=== PATIENT | female | born 1990 | race Caucasian/White ===

== ENCOUNTER 2016-11-27 23:50 | Inpatient (IN) | payer SELFPAY ==
--- NOTE | ~2016-11-27 | CN ---
Consultation Report [facility] [address] [place]. [address] NAME: JAIRO MORENO : 89 STATUS : ADM IN PAT#: [id number] AGE: 26 ADM/REG DATE : 11/28/16 MR#: [id number] REPORT SERV DATE: 11/28/16 DICTATED BY: ROJAS JAEGER DATE: 11/28/16 REPORT STATUS : Draft TRANSCRIBED BY: MODL DATE: 11/28/16 INFECTIOUS DISEASE CONSULT DATE OF CONSULTATION: REASON FOR CONSULT: Left face cellulitis. HISTORY OF PRESENT ILLNESS: 26-year-old white female with history of hypertension, who was admitted for left face cellulitis. A few days ago, she noticed a lesion or pimple on the medial aspect of the left nostril antrum followed by swelling of the left upper lip and then low-grade fever of 100.5 and swelling extending to the left side of the face. 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 Yesterday, he gave her a shot of Rocephin and prescription for Bactrim and Keflex. However, with the low-grade fever and the extension of cellulitis, she came to the emergency room overnight and was admitted. She was started on vancomycin and clindamycin. She reports no shortness of breath, no diarrhea, no abdominal pain. She has no history of pimples, boils or Staph infections, but her or significant other had some form of lesion on his neck recently. She has not been febrile here in the hospital. With the highest temperature being 99.8, a CT of the "face" showed soft tissue swelling over the left cheek and phlegmon-type changes lateral to the soft tissue of the nose and below the nose. Incidental finding was a "hypoplastic right maxillary sinus." There may be a small soft tissue abscess. Lab work on admission showed a creatinine of 1.0. Liver enzymes within normal limits. Lactic acid 1.9. WBC 17, hemoglobin 15, platelets 350. Blood cultures were collected. PAST MEDICAL HISTORY: Hypertension. SOCIAL HISTORY: Works for a doctor's office. Does not smoke or drink. FAMILY HISTORY: As I mentioned about possible skin infection. MEDICATIONS ON ADMISSION: The two antibiotics plus losartan. Also she was given Conroy as needed. ALLERGIES: NONE. PHYSICAL EXAMINATION: GENERAL: She is alert, awake, obese. HEENT: She has swelling of the medial aspect of the left side of the face and induration and swelling of the left upper lip. In the medial aspect of the left nostril antrum, there is a swollen area which seems to have a little drainage. The patient reported drainage from it at home. HEART: Regular rhythm. No murmurs. LUNGS: Clear to auscultation. ABDOMEN: Obese and soft. Consultation Report [address] [place]. [facility] [place]. [address] NAME: JAIRO MORENO : 89 STATUS : ADM IN PAT#: [id number] AGE: 26 ADM/REG DATE : 11/28/16 MR#: [id number] REPORT SERV DATE: 11/28/16 DICTATED BY: ROJAS JAEGER DATE: 11/28/16 REPORT STATUS : Draft TRANSCRIBED BY: LENORA DATE: 11/28/16 ASSESSMENT AND PLAN: Left facial cellulitis secondary to left nostril abscess. Typically, these are caused by Staphylococcus aureus. She is forming a small abscess in the left nostril. Need to facilitate drainage. I suggested intermittent warm compresses. Consider ENT for lancing it. Antibiotic albright, I do not think she needs both clindamycin and vancomycin. Continue vancomycin for now, but I think tomorrow we could switch to linezolid p.o. I discussed with the nurse and explained how to obtain a culture from the drainage from the left nostril abscess. I discussed with the patient. She had the opportunity to ask questions. JARRED/LENORA Rojas Jaeger M.D. / [id number] CC: Torie Miranda M.D.
--- NOTE | ~2016-11-27 | DS ---
Discharge Summary [facility] [address] [place]. [address] NAME: JAIRO MORENO : 89 STATUS : ADM IN [facility]#: [id number] AGE: 26 ADM/REG DATE : 11/28/16 MR#: [id number] REPORT SERV DATE: 12/01/16 DICTATED BY: NELA BARON DATE: 12/01/16 REPORT STATUS : Draft TRANSCRIBED BY: MODL DATE: 12/01/16 ADMISSION DATE: 11/28/2016 DISCHARGE DATE: 12/01/2016 DIAGNOSES ON ADMISSION: 1. Left facial cellulitis with a small left-sided abscess inside of the nose. 2. Leukocytosis with sepsis on admission with tachycardia. 3. Hypertension. DIAGNOSES ON DISCHARGE: 1. Left facial cellulitis resolved with residual left-sided lip swelling, improved. 2. Small abscess inside of the nose currently self-draining. The patient doing very well. 3. Sepsis syndrome present on admission, resolved next day. Afebrile with normal white count, doing very well. 4. Hypertension, controlled. 5. Obesity. 6. Leukocytosis, resolved. CONSULTANTS ON THE CASE: Dr. Rojas Cool of Infectious Disease and Dr. Tj West of Ear, Nose, and Throat. HISTORY OF PRESENT ILLNESS: Briefly, this is a very pleasant 26-year-old female, who was admitted by my colleague, Dr. Mann for left-sided facial swelling as well as cellulitis and lip swelling as well as a small questionable abscess inside of the nose. For the details of history of present illness, see details dictated by Dr. Mann on 11/28/2016. HOSPITAL COURSE: Briefly, patient was initially started on broad-spectrum antibiotics and IV fluids. Next day, Dr. Cool, Infectious Disease saw patient and he recommended to continue vancomycin and to switch subsequently to Zyvox as well as Ear, Nose, and Throat, Dr. West was consulted for possible abscess because the CT scan which was done on admission on her face showed soft tissue swelling over the nose and cheek region, which may be related to inflammation, and there is a suggestion of a small lucent area in the middle portion, which measures 1.4 to 0.5 cm which could be a small soft tissue abscess. Dr. West evaluated this patient, and he thinks that she had nasal folliculitis and facial lip cellulitis. There was no evidence of abscess on physical examination because it seems to have spontaneously drained, so the patient did not need any surgery. She just had an infected hair follicle, which turned into cellulitis, but the patient improved significantly on antibiotics and she is doing very well. For the last two days, she is afebrile. The infection spontaneously drained and the swelling has resolved. There is minimal swelling on the upper lip, which is improving day by day. Dr. Rojas Cool evaluated the patient again yesterday and he recommended to switch her to cefadroxil according to sensitivity, and she needs to continue seven days of cefadroxil at a dose of 1000 mg twice a day. Prescription is written by me as well as she needs to continue her home blood pressure medicine, losartan. The patient had mild yeast for which she was given clotrimazole cream and she can use it as [id number] as needed, but now her yeast has resolved. Discharge Summary [address] [address] NAME: JAIRO MORENO : 89 STATUS : ADM IN [facility]#: [id number] AGE: 26 ADM/REG DATE : 11/28/16 MR#: [id number] REPORT SERV DATE: 12/01/16 DICTATED BY: NELA BARON DATE: 12/01/16 REPORT STATUS : Draft TRANSCRIBED BY: LENORA DATE: 12/01/16 The patient was discharged in stable condition. She was recommended to follow up with Ear, Nose, and Throat, Dr. West as needed. If she will have more problems, she can also follow up with the emergency department, but she looks very well, afebrile, and the white count being in the normal range. I spent 45 minutes on discharge. /LENORA Nela Baron M.D. / [id number] CC: Nela Baron M.D.
--- NOTE | ~2016-11-27 | CN ---
Consultation Report [facility] [address] [place]. [address] NAME: JAIRO ALVARADO : 89 STATUS : ADM IN [facility]#: [id number] AGE: 26 ADM/REG DATE : 11/28/16 MR#: [id number] REPORT SERV DATE: 11/29/16 DICTATED BY: BEN MOROCHO DATE: 11/29/16 REPORT STATUS : Draft TRANSCRIBED BY: MODL DATE: 11/29/16 CONSULTATION DATE OF CONSULTATION: 11/29/2016 REASON FOR CONSULTATION: Facial cellulitis and possible abscess. 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 A few days ago, she noticed a sore area in the left nasal vestibule and then overnight she developed a fever to 100.5 and a rapid swelling in the left side of her face and upper lip. Her provider, Dr. Cardoza, gave her shot of Rocephin, Bactrim, and Keflex, but her symptoms persisted and she was admitted to the hospital on 11/27/2016 for further IV antibiotics. 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 No alcohol or tobacco abuse. PAST MEDICAL HISTORY: Hypertension. PHYSICAL EXAMINATION: GENERAL: The patient is awake, alert, appropriate. HEENT: Both ears are clear. Nose, in the floor of the left nasal vestibule, there is a purulent drainage from a hair follicle in this region. Examination to the face and neck, she has diffuse swelling of the upper lip, but no fluctuance. IMPRESSION: Nasal folliculitis with facial/lip cellulitis. No evidence of significant abscess on physical exam. It seems to have spontaneously drained. RECOMMENDATIONS: Continue current IV antibiotics and call me if it does not improve. RASHIDA/LENORA Ben Morocho M.D. / [id number] CC: Torie Miranda M.D. NO PCP
--- NOTE | ~2016-11-27 | HP ---
History And Physical [place] [id number] [facility] [place]. [address] NAME: JAIRO MORENO : 89 STATUS : ADM IN [facility]#: [id number] AGE: 26 ADM/REG DATE : 11/28/16 MR#: [id number] REPORT SERV DATE: 11/28/16 DICTATED BY: OMERO SHRESTHA DATE: 11/28/16 REPORT STATUS : Draft TRANSCRIBED BY: MODEna DATE: 11/28/16 DATE OF ADMISSION: 11/28/2016 CHIEF COMPLAINT: A 26-year-old female presenting with left facial swelling. HISTORY OF PRESENTING ILLNESS: The patient's history was obtained through an interview with the patient and her boyfriend. Around 11/24/2016, the patient felt a pimple and a bump inside her left upper lip, it seemed to drain on 11/25/2016, but then had increasing swelling, and by the night of 11/26/2016, it began to just expand significantly. She describes fevers, chills, and temperature up to 100.5. She went to see her primary care physician on the morning of 11/27/2016, was given Keflex, Bactrim double strength, and a shot of IV Rocephin, but unfortunately has had only increasing swelling, redness, heat, and pain. She describes left face pain around her left upper lip and cheek; aching quality, 7 to 8 out of 10 in severity. No neck discomfort. No shortness of breath. No dysphagia. No tongue swelling. No abdominal pain. No chest pain. No cough. No nausea or vomiting. REVIEW OF SYSTEMS: Otherwise, a 14-point review of systems was obtained and was negative. PAST MEDICAL HISTORY: Hypertension. PAST SURGICAL HISTORY: Denies any known allergies. ALLERGIES: NO KNOWN DRUG ALLERGIES. SOCIAL HISTORY: No tobacco abuse. No alcohol abuse. Lives alone in [place], [place]. Works as a nurse for [employer]. Has no children. FAMILY HISTORY: Mother with Guillain[place]. Father, healthy. MEDICATIONS: Current medications include Keflex 500 mg p.o. t.i.d., hydrocodone p.r.n., Cozaar 50 mg daily, and Septra double strength p.o. b.i.d. PHYSICAL EXAMINATION: VITAL SIGNS: Temperature 99.8, pulse 130, blood pressure 178/100, respiratory rate 18, and O2 saturation 99% on room air. GENERAL: A pleasant cooperative female but in evidence of distress secondary to History And Physical [address] [address] NAME: JAIRO MORENO : 89 STATUS : ADM IN [facility]#: [id number] AGE: 26 ADM/REG DATE : 11/28/16 MR#: [id number] REPORT SERV DATE: 11/28/16 DICTATED BY: OMERO SHRESTHA DATE: 11/28/16 REPORT STATUS : Draft TRANSCRIBED BY: LENORA DATE: 11/28/16 left facial pain HEENT: Pupils are equal, round, and reactive to light. No conjunctival pallor. No scleral icterus. Nares are patent. Oropharynx is clear of obstruction. Moist mucous membranes. The patient has significant swelling and redness over the left lip and cheek with erythema, heat, swelling, and tenderness. NECK: Trachea midline. No thyromegaly. LYMPH: No cervical lymphadenopathy. No supraclavicular lymphadenopathy. No posterior cervical lymphadenopathy. RESPIRATORY: Clear to auscultation at the bases. No wheezes, rales, or rhonchi. Normal respiratory effort. No stridor. CARDIOVASCULAR: Tachycardic. Regular rhythm. No murmurs, rubs, or gallops. No extremity edema is appreciated. ABDOMEN: Soft, nontender, and nondistended. Normal bowel sounds auscultated throughout. No organomegaly. DERMATOLOGICAL: Warm and dry extremities. No pallor. No cyanosis. PSYCHIATRIC: Normal affect. Good mood. Alert and oriented x3. LABORATORY DATA: White blood count 17.8, hemoglobin 15, hematocrit 44, and platelets 350. Sodium 139, potassium 3.8, chloride 103, bicarb 26, BUN 9, creatinine 1.09, glucose 107, and lactic acid 1.9. Liver enzymes within normal limits. STUDIES: 1. EKG, by my own evaluation, shows sinus tachycardia. 2. CT scan of the brain without contrast and face without contrast shows no abscess. ASSESSMENT AND PLAN: 1. Left facial cellulitis, "failed" outpatient Bactrim and Keflex. Check blood cultures, place on IV vancomycin, IV clindamycin. 2. Sepsis. White blood count of 17.8 with tachycardia. Check blood cultures. 3. Hypertension, p.r.n. medications, pain control. KPL/MODL Omero Shrestha M.D. / [id number] CC: Torie Miradna M.D.
[2016-11-28 00:42] LABS: BASOPHILS 0.2 %; BASOPHILS ABSOLUTE 0.03 10/3/uL (0.0-0.16); EOSINOPHILS 0.2 %; EOSINOPHILS ABSOLUTE 0.04 10/3/uL (0.0-0.53); HEMATOCRIT 44.1 % (36.0-48.0); HEMOGLOBIN 15.2 g/dL (12.0-16.0); IMMATURE GRANULOCYTES 0.3 %; IMMATURE GRANULOCYTES ABSOLUTE 0.06 10/3/uL (0.0-0.11); LYMPHOCYTES ABSOLUTE 1.79 10/3/uL (0.67-4.30); MEAN CORPUS HGB CONC 34.5 g/dL (32.0-36.0); MEAN CORPUSCULAR HEMOGLOB 30.3 pg (26.0-34.0); MEAN CORPUSCULAR VOLUME 87.8 fL (80-100); MEAN PLATELET VOLUME 9.3 fL (9.2-13.0); MONOCYTES 4.4 %; MONOCYTES ABSOLUTE 0.78 10/3/uL (0.21-1.20); NEUTROPHILS 84.9 %; NEUTROPHILS ABSOLUTE 15.12 10/3/uL (2.02-8.40); PLATELET COUNT 350 10/3/uL (150-400); RBC DISTRIBUTION WIDTH 12.3 % (12.0-16.0); RED CELL COUNT 5.02 10/6/uL (4.0-5.6); WHITE BLOOD CELLS 17.8 10/3/uL (4.5-10.5)
[2016-11-28 00:44] LABS: ER CBC TAT 0 Hrs 07 MinsNP; MANUAL DIFF NO %
[2016-11-28 00:57] LABS: A/G RATIO 0.8 (0.7-1.9); ALBUMIN 3.7 G/DL (3.5-5.0); ALKALINE PHOSPHATASE 51 U/L (45-117); BUN (BLOOD UREA NITROGEN) 9 MG/DL (6-23); CALCIUM, SERUM 8.4 MG/DL (8.5-10.4); CHLORIDE, SERUM 103 MMOL/L (96-112); CO2 (CARBON DIOXIDE) 26 MMOL/L (24-34); CREATININE 1.09 MG/DL (0.55-1.02); GFR AFRICAN AMERICAN 81 ML/MIN (>=60); GFR NON AFRICAN AMERICAN 70 ML/MIN (>=60); GLOBULIN 4.6 G/DL (2.5-4.1); GLUCOSE, SERUM 107 MG/DL (60-99); POTASSIUM, SERUM 3.8 MMOL/L (3.5-5.3); SGOT(AST) 28 U/L (5-40); SGPT(ALT) 49 U/L (5-65); SODIUM, SERUM 139 MMOL/L (135-148); TOTAL BILIRUBIN 0.6 MG/DL (0-1.2); TOTAL PROTEIN 8.3 G/DL (6.0-8.5)
[2016-11-28] MEDS ORDERED: COZ50 PO (05:14)
[2016-11-28] MEDS ORDERED: SEPTRA DS1 TAB PO (05:15)
[2016-11-28] MEDS ORDERED: K500 PO (05:15)
[2016-11-28] MEDS ORDERED: NORCO1 TA1 PO (05:15)
[2016-11-28 12:20] LABS: INTERNATIONAL NORMAL RATI 1.1 UNITS (-); PARTIAL THROMBO TIME 35.4 SEC (22.5-37.2); PROTIME (NOT ORD) 14.2 SEC (12.0-14.5)
[2016-11-28 12:37] LABS: A/G RATIO 0.8 (0.7-1.9); ALBUMIN 3.2 G/DL (3.5-5.0); ALKALINE PHOSPHATASE 55 U/L (45-117); BUN (BLOOD UREA NITROGEN) 6 MG/DL (6-23); CALCIUM, SERUM 7.9 MG/DL (8.5-10.4); CHLORIDE, SERUM 109 MMOL/L (96-112); CO2 (CARBON DIOXIDE) 24 MMOL/L (24-34); CREATININE 1.02 MG/DL (0.55-1.02); GFR AFRICAN AMERICAN 88 ML/MIN (>=60); GFR NON AFRICAN AMERICAN 76 ML/MIN (>=60); GLOBULIN 4.1 G/DL (2.5-4.1); GLUCOSE, SERUM 93 MG/DL (60-99); SGOT(AST) 64 U/L (5-40); SGPT(ALT) 67 U/L (5-65); SODIUM, SERUM 141 MMOL/L (135-148); TOTAL BILIRUBIN 0.8 MG/DL (0-1.2); TOTAL PROTEIN 7.3 G/DL (6.0-8.5); ULTRASENSITIVE TSH 0.759 MCIU/ML (0.358-3.740)
[2016-11-28 13:12] LABS: PROCALCITONIN <0.05 ng/mL (<0.5)
[2016-11-29 06:15] LABS: BASOPHILS 0.2 %; BASOPHILS ABSOLUTE 0.02 10/3/uL (0.0-0.16); EOSINOPHILS 1.1 %; EOSINOPHILS ABSOLUTE 0.14 10/3/uL (0.0-0.53); HEMATOCRIT 39.8 % (36.0-48.0); IMMATURE GRANULOCYTES 0.2 %; IMMATURE GRANULOCYTES ABSOLUTE 0.03 10/3/uL (0.0-0.11); LYMPHOCYTES 29.1 %; LYMPHOCYTES ABSOLUTE 3.66 10/3/uL (0.67-4.30); MANUAL DIFF NO %; MEAN CORPUS HGB CONC 32.7 g/dL (32.0-36.0); MEAN CORPUSCULAR HEMOGLOB 29.2 pg (26.0-34.0); MEAN CORPUSCULAR VOLUME 89.4 fL (80-100); MEAN PLATELET VOLUME 9.5 fL (9.2-13.0); MONOCYTES 7.3 %; MONOCYTES ABSOLUTE 0.92 10/3/uL (0.21-1.20); NEUTROPHILS 62.1 %; PLATELET COUNT 318 10/3/uL (150-400); RBC DISTRIBUTION WIDTH 12.5 % (12.0-16.0); RED CELL COUNT 4.45 10/6/uL (4.0-5.6); WHITE BLOOD CELLS 12.6 10/3/uL (4.5-10.5)
[2016-11-29 06:22] LABS: BUN (BLOOD UREA NITROGEN) 7 MG/DL (6-23); CALCIUM, SERUM 8.2 MG/DL (8.5-10.4); CHLORIDE, SERUM 107 MMOL/L (96-112); CO2 (CARBON DIOXIDE) 24 MMOL/L (24-34); CREATININE 0.74 MG/DL (0.55-1.02); GFR AFRICAN AMERICAN 130 ML/MIN (>=60); GFR NON AFRICAN AMERICAN 112 ML/MIN (>=60); GLUCOSE, SERUM 83 MG/DL (60-99); POTASSIUM, SERUM 4.1 MMOL/L (3.5-5.3); SODIUM, SERUM 141 MMOL/L (135-148)
[2016-11-30 05:30] LABS: BASOPHILS 0.3 %; BASOPHILS ABSOLUTE 0.03 10/3/uL (0.0-0.16); EOSINOPHILS 2.3 %; EOSINOPHILS ABSOLUTE 0.25 10/3/uL (0.0-0.53); HEMATOCRIT 40.6 % (36.0-48.0); HEMOGLOBIN 13.6 g/dL (12.0-16.0); IMMATURE GRANULOCYTES 0.3 %; IMMATURE GRANULOCYTES ABSOLUTE 0.03 10/3/uL (0.0-0.11); LYMPHOCYTES 30.6 %; LYMPHOCYTES ABSOLUTE 3.26 10/3/uL (0.67-4.30); MEAN CORPUS HGB CONC 33.5 g/dL (32.0-36.0); MEAN CORPUSCULAR HEMOGLOB 29.8 pg (26.0-34.0); MEAN PLATELET VOLUME 9.3 fL (9.2-13.0); MONOCYTES ABSOLUTE 0.64 10/3/uL (0.21-1.20); NEUTROPHILS 60.5 %; NEUTROPHILS ABSOLUTE 6.43 10/3/uL (2.02-8.40); PLATELET COUNT 345 10/3/uL (150-400); RBC DISTRIBUTION WIDTH 12.2 % (12.0-16.0); RED CELL COUNT 4.56 10/6/uL (4.0-5.6); WHITE BLOOD CELLS 10.6 10/3/uL (4.5-10.5)
[2016-11-30 05:34] LABS: MANUAL DIFF NO %
[2016-11-30 05:50] LABS: BUN (BLOOD UREA NITROGEN) 8 MG/DL (6-23); CALCIUM, SERUM 8.7 MG/DL (8.5-10.4); CHLORIDE, SERUM 104 MMOL/L (96-112); CO2 (CARBON DIOXIDE) 25 MMOL/L (24-34); CREATININE 0.89 MG/DL (0.55-1.02); GFR AFRICAN AMERICAN 104 ML/MIN (>=60); GFR NON AFRICAN AMERICAN 89 ML/MIN (>=60); GLUCOSE, SERUM 97 MG/DL (60-99); SODIUM, SERUM 138 MMOL/L (135-148)
[2016-12-01 06:35] LABS: BASOPHILS 0.4 %; BASOPHILS ABSOLUTE 0.04 10/3/uL (0.0-0.16); EOSINOPHILS 3.9 %; EOSINOPHILS ABSOLUTE 0.39 10/3/uL (0.0-0.53); HEMATOCRIT 42.3 % (36.0-48.0); HEMOGLOBIN 14.4 g/dL (12.0-16.0); IMMATURE GRANULOCYTES 0.3 %; IMMATURE GRANULOCYTES ABSOLUTE 0.03 10/3/uL (0.0-0.11); LYMPHOCYTES 38.5 %; LYMPHOCYTES ABSOLUTE 3.88 10/3/uL (0.67-4.30); MEAN CORPUSCULAR HEMOGLOB 30.4 pg (26.0-34.0); MEAN CORPUSCULAR VOLUME 89.2 fL (80-100); MEAN PLATELET VOLUME 9.1 fL (9.2-13.0); MONOCYTES 7.8 %; MONOCYTES ABSOLUTE 0.79 10/3/uL (0.21-1.20); NEUTROPHILS 49.1 %; NEUTROPHILS ABSOLUTE 4.94 10/3/uL (2.02-8.40); PLATELET COUNT 420 10/3/uL (150-400); RBC DISTRIBUTION WIDTH 12.2 % (12.0-16.0); RED CELL COUNT 4.74 10/6/uL (4.0-5.6); WHITE BLOOD CELLS 10.1 10/3/uL (4.5-10.5)
[2016-12-01 06:57] LABS: MANUAL DIFF NO %
[2016-12-01] MEDS ORDERED: CEFADROXIL1 GM PO (09:31)
== END 2016-12-01 16:46 | disposition home or self-care (01) | DRG 872 ==
LOC: ER 23:50 → 5SO 11-28 05:43
PROVIDERS: Emergency Medicine; Hospitalist
DX: A41.9 Sepsis, unspecified organism (principal); Z68.41 Body mass index [BMI] 40.0-44.9, adult; I10 Essential (primary) hypertension; L03.211 Cellulitis of face; J34.0 Abscess, furuncle and carbuncle of nose; B95.61 Methicillin susceptible Staphylococcus aureus infection as the cause of diseases classified elsewhere; E66.9 Obesity, unspecified
CPT/HCPCS: 70487; 80048; 80053; 83605; 83735; 84145; 84443; 84703; 85025; 85610; 85730; 87040; 87070; 87077; 87186; 93005; 96365; 96375; 99291; A9270-GY; J1170; J2405; J3370; Q9967